=== PATIENT | female | born 1965 | race Caucasian/White ===

== ENCOUNTER 2017-09-18 09:48 | Day surgery (SDC) | payer BC ==
[~2017-09-18] VITALS: Ht 175.3 cm; Wt 93.4 kg
[~2017-09-18 09:48] MED LIST: AMIT25; CLON.5; CYCL10 PO; VENL75ER
[2017-09-18] MEDS ORDERED: ELIQUIS2.5 MG (10:42)
== END 2017-09-18 13:45 | disposition home or self-care (01) ==
LOC: ORSCSDS 09:48
PROVIDERS: Internal Medicine Gastroenterology
PROC: 3E0H8GC Introduction of Other Therapeutic Substance into Lower GI, Via Natural or Artificial Opening Endoscopic (ICD-10-PCS; principal; 2017-09-18 11:00)
PROC: 0DB68ZX Excision of Stomach, Via Natural or Artificial Opening Endoscopic, Diagnostic (ICD-10-PCS; principal; 2017-09-18 11:00)
PROC: 0DBH8ZX Excision of Cecum, Via Natural or Artificial Opening Endoscopic, Diagnostic (ICD-10-PCS; principal; 2017-09-18 11:00)
PROC: 0DBK8ZX Excision of Ascending Colon, Via Natural or Artificial Opening Endoscopic, Diagnostic (ICD-10-PCS; principal; 2017-09-18 11:00)
PROC: 0DBL8ZX Excision of Transverse Colon, Via Natural or Artificial Opening Endoscopic, Diagnostic (ICD-10-PCS; principal; 2017-09-18 11:00)
PROC: 0DB88ZX Excision of Small Intestine, Via Natural or Artificial Opening Endoscopic, Diagnostic (ICD-10-PCS; principal; 2017-09-18 11:00)
DX: R14.0 Abdominal distension (gaseous) (principal); R14.1 Gas pain; K25.9 Gastric ulcer, unspecified as acute or chronic, without hemorrhage or perforation; D12.0 Benign neoplasm of cecum; D12.2 Benign neoplasm of ascending colon; D12.3 Benign neoplasm of transverse colon; K57.30 Diverticulosis of large intestine without perforation or abscess without bleeding; K64.8 Other hemorrhoids; Z83.71 Family history of colonic polyps; R73.03 Prediabetes; M79.7 Fibromyalgia; Z79.899 Other long term (current) drug therapy
CPT/HCPCS: 88305; 88342; J7120

== ENCOUNTER → 2018-10-27 | Outpatient (CLI) | payer BC ==
[~2018-10-27] MED LIST changes: +ELIQUIS2.5 MG
== END | disposition home or self-care (01) ==
LOC: LAB 14:32 → LAB SHORT 14:32
PROVIDERS: Nurse Practitioner
DX: Z01.419 Encounter for gynecological examination (general) (routine) without abnormal findings (principal)
CPT/HCPCS: G0145

== ENCOUNTER 2018-11-10 15:52 | Emergency (ER) | payer BC ==
[~2018-11-10] VITALS: Ht 175.3 cm; Wt 86.2 kg
[2018-11-10 17:03] LABS: BASOPHILS ABSOLUTE AUTO 0.03 K/mm3 (0.00-0.23); BASOPHILS PERCENT AUTO 0 % (0-2); EOSINOPHILS ABSOLUTE AUTO 0.16 K/mm3 (0.00-0.68); EOSINOPHILS PERCENT AUTO 1 % (0-6); Hematocrit 47.9 % (33.0-51.0); Hemoglobin 15.5 g/dL (11.5-16.0); IMMATURE GRAN ABSOLUTE AUTO 0.04 K/mm3 (0.00-0.10); IMMATURE GRAN PERCENT AUTO 0 % (0-1); LYMPHOCYTES ABSOLUTE AUTO 0.51 K/mm3 (0.84-5.20); LYMPHOCYTES PERCENT AUTO 4 % (21-46); MONOCYTES PERCENT AUTO 4 % (4-13); Mean Corpuscular HGB Conc 32.4 g/dL (31.5-36.5); Mean Corpuscular Volume 93 fL (80-100); Mean Platelet Volume 9.1 fL (9.1-12.4); NEUTROPHILS ABSOLUTE AUTO 12.72 K/mm3 (1.96-9.15); NEUTROPHILS PERCENT AUTO 91 % (41-73); Platelet Count 271 K/mm3 (150-400); RDW Coefficient Variation 12.8 % (11.7-14.2); RDW Standard Deviation 43.9 fL (35.1-46.3); Red Blood Cell Count 5.17 M/mm3 (3.80-5.20); White Blood Cell Count 13.96 K/mm3 (4.00-11.30)
[2018-11-10 17:28] LABS: C-REACTIVE PROTEIN, EXT RANGE <0.290 mg/dL (0.000-0.300)
[2018-11-10 17:30] LABS: Alanine Aminotransfer (ALT/SGP 30 U/L (12-78); Albumin, Blood 4.4 g/dL (3.4-5.0); Alk Phos 67 U/L (50-136); Anion Gap 7 mmol/L (6-16); Aspartate Aminotrans (AST/SGOT 27 U/L (12-37); Bilirubin, Total 0.6 mg/dL (0.1-1.0); Blood Urea Nitrogen 20 mg/dL (8-24); Bun/Creatinine Ratio 34.2 (12.0-20.0); CO2, Blood 26 mmol/L (21-32); Calcium, Blood 9.2 mg/dL (8.5-10.1); Chloride, Blood 106 mmol/L (98-108); Creatinine, Blood 0.58 mg/dL (0.40-1.00); Globulin, Blood 4.2 g/dL (2.2-4.0); Glomerular Filtration Rate >60 (60-); Glucose, Blood 164 mg/dL (70-99); Potassium, Blood 4.3 mmol/L (3.5-5.5); Sodium, Blood 139 mmol/L (136-145); Total Protein, Blood 8.6 g/dL (6.4-8.2)
[2018-11-10 21:04] LABS: Source, Urine Clean Catch
[2018-11-10 21:07] LABS: Appearance, Urine Hazy (Clear); Bilirubin, Urine Neg (Neg); Blood, Urine 1+ (Neg); Color, Urine Yellow (P-Yellow); Glucose Qualitative, Urine Neg (Neg); Ketones, Urine Neg (Neg); Leukocyte Esterase, Urine 1+ (Neg); Nitrite, Urine Pos (Neg); Protein, Urine 2+ (Neg); Urobilinogen, Urine NORM (Normal)
[2018-11-10 21:22] LABS: Bacteria Many /hpf; Red Blood Cells, Urine Not Seen /hpf (0-2); Squamous Epithelial Cells Few /hpf (Few)
[2018-11-10] MEDS ORDERED: TRAZ50 PO (21:29)
[2018-11-11] MEDS ORDERED: Zofran8 MG PO (01:03)
[2018-11-11] MEDS ORDERED: Bactrim Ds Tab1 EACH PO (01:03)
[2018-11-11] MEDS ORDERED: HYDR1TAB94 PO (01:03)
== END 2018-11-11 01:28 | disposition home or self-care (01) ==
LOC: ER 15:52
PROVIDERS: Emergency Medicine; Physician Assistant
DX: N39.0 Urinary tract infection, site not specified (principal); K52.9 Noninfective gastroenteritis and colitis, unspecified; M41.9 Scoliosis, unspecified; R20.2 Paresthesia of skin; Z88.5 Allergy status to narcotic agent; Z98.890 Other specified postprocedural states
CPT/HCPCS: 51798; 74176; 80053; 81001; 83690; 85025; 85651; 86140; J0696; J7120

== ENCOUNTER 2020-09-08 16:32 | Inpatient (IN) | payer BC ==
[~2020-09-08] VITALS: Ht 175.3 cm; Wt 83.5 kg
[~2020-09-08 16:32] MED LIST changes: +Bactrim Ds Tab1 EACH PO; +HYDR1TAB94 PO; +TRAZ50 PO; +Zofran8 MG PO
[2020-09-08 16:55] LABS: Source, Urine Clean Catch
[2020-09-08 17:04] LABS: Appearance, Urine Hazy (Clear); Bilirubin, Urine Neg (Neg); Blood, Urine 1+ (Neg); Color, Urine Yellow (P-Yellow); Glucose Qualitative, Urine Neg (Neg); Ketones, Urine 2+ (Neg); Leukocyte Esterase, Urine 1+ (Neg); Nitrite, Urine Neg (Neg); Protein, Urine Neg (Neg); Specific Gravity, Urine 1.015 (1.003-1.022); Urobilinogen, Urine NORM (Normal)
[2020-09-08 17:14] LABS: BASOPHILS ABSOLUTE AUTO 0.04 K/mm3 (0.00-0.23); BASOPHILS PERCENT AUTO 0 % (0-2); EOSINOPHILS ABSOLUTE AUTO 0.07 K/mm3 (0.00-0.68); EOSINOPHILS PERCENT AUTO 0 % (0-6); Hematocrit 42.5 % (33.0-51.0); Hemoglobin 13.8 g/dL (11.5-16.0); IMMATURE GRAN ABSOLUTE AUTO 0.06 K/mm3 (0.00-0.10); IMMATURE GRAN PERCENT AUTO 0 % (0-1); LYMPHOCYTES ABSOLUTE AUTO 1.34 K/mm3 (0.84-5.20); LYMPHOCYTES PERCENT AUTO 8 % (21-46); MONOCYTES ABSOLUTE AUTO 1.15 K/mm3 (0.16-1.47); MONOCYTES PERCENT AUTO 7 % (4-13); Mean Corpuscular HGB 29.2 pg (26.0-34.0); Mean Corpuscular HGB Conc 32.5 g/dL (31.5-36.5); Mean Corpuscular Volume 90 fL (80-100); Mean Platelet Volume 9.2 fL (9.1-12.4); NEUTROPHILS ABSOLUTE AUTO 13.94 K/mm3 (1.96-9.15); NEUTROPHILS PERCENT AUTO 84 % (41-73); Platelet Count 232 K/mm3 (150-400); RDW Coefficient Variation 13.6 % (11.7-14.2); RDW Standard Deviation 44.4 fL (35.1-46.3); Red Blood Cell Count 4.72 M/mm3 (3.80-5.20)
[2020-09-08 17:20] LABS: Bacteria Mod /hpf; Squamous Epithelial Cells Few /hpf (Few)
[2020-09-08 17:36] LABS: Alanine Aminotransfer (ALT/SGP 19 U/L (12-78); Albumin, Blood 3.6 g/dL (3.4-5.0); Albumin/Globulin Ratio 0.9 (0.8-1.8); Alk Phos 57 U/L (50-136); Anion Gap 9 mmol/L (6-16); Aspartate Aminotrans (AST/SGOT 27 U/L (12-37); Bilirubin, Total 0.6 mg/dL (0.1-1.0); Blood Urea Nitrogen 14 mg/dL (8-24); Bun/Creatinine Ratio 22.2 (12.0-20.0); CO2, Blood 22 mmol/L (21-32); Calcium, Blood 8.9 mg/dL (8.5-10.1); Chloride, Blood 104 mmol/L (98-108); Creatinine, Blood 0.63 mg/dL (0.40-1.00); Globulin, Blood 3.9 g/dL (2.2-4.0); Glomerular Filtration Rate >60 (60-); Glucose, Blood 131 mg/dL (70-99); Potassium, Blood 4.3 mmol/L (3.5-5.5); Sodium, Blood 135 mmol/L (136-145); Total Protein, Blood 7.5 g/dL (6.4-8.2)
[2020-09-08 20:22] LABS: International Normalized Ratio 0.98; Prothrombin Time Results 10.5 Sec (9.7-11.5)
[2020-09-08 23:37] LABS: Influenza A, PCR Negative (NEGATIVE); Influenza B, PCR Negative (NEGATIVE); Resp Syncytial Virus, PCR Negative (NEGATIVE); SARS-Cov-2 (COVID-19) PCR, MMC Negative (NEGATIVE)
[2020-09-09 03:31] LABS: Hematocrit 39.1 % (33.0-51.0); Hemoglobin 12.5 g/dL (11.5-16.0); Mean Corpuscular HGB 28.9 pg (26.0-34.0); Mean Corpuscular Volume 90 fL (80-100); Mean Platelet Volume 8.9 fL (9.1-12.4); Platelet Count 206 K/mm3 (150-400); RDW Coefficient Variation 13.7 % (11.7-14.2); RDW Standard Deviation 45.9 fL (35.1-46.3); Red Blood Cell Count 4.33 M/mm3 (3.80-5.20); White Blood Cell Count 16.14 K/mm3 (4.00-11.30)
[2020-09-09 03:49] LABS: Anion Gap 5 mmol/L (6-16); Blood Urea Nitrogen 14 mg/dL (8-24); Bun/Creatinine Ratio 23.6 (12.0-20.0); CO2, Blood 26 mmol/L (21-32); Calcium, Blood 8.4 mg/dL (8.5-10.1); Chloride, Blood 110 mmol/L (98-108); Creatinine, Blood 0.59 mg/dL (0.40-1.00); Glomerular Filtration Rate >60 (60-); Glucose, Blood 111 mg/dL (70-99); Magnesium, Blood 2.2 mg/dL (1.6-2.4); Potassium, Blood 3.9 mmol/L (3.5-5.5); Sodium, Blood 141 mmol/L (136-145)
--- NOTE | 2020-09-09 05:09 | NUR ---
SHIFT SUMMARY PT ARRIVED TO UNIT VIA @ 2100 ON 09/07/2020, APPEARED TO BE IN NO ACUTE DISTRESS, TRANSFERRED FROM TO THE BATHROOM INDEPENDENTLY, ACCOMPANIED BY SO. ONCE FINISHED, SHE WAS ASSISTED TO BED, VITALS OBTAINED, ORIENTED TO ROOM, INITIAL ASSESSMENT AND ADMIT INFORMATION WAS COMPLETED, PT HX GATHERED W/ THE HELP OF HER SO. PT NPO OTHER THAN 1 PARTIAL CUP OF WATER USED FOR ORAL MEDS, PAIN WELL CONTROLLED, INITIAL CONSENTS FOR SURGERY COMPLETED, SURGICAL PACKET PUT TOGETHER. CALL LIGHT IN REACH, WILL CONTINUE TO MONITOR AND REPORT TO ONCOMING DAY RN.
--- NOTE | 2020-09-09 09:10 | NUR ---
PT TO OR AT ABOUT 0820
--- NOTE | 2020-09-09 14:03 | NUR ---
POST OP: REPORT RECIEVED FROM KELLY, BOLTING MACHINE OPERATOR. PT TO UNIT AT ABOUT 1020. UPON ASSESSMENT, PT IS IN NO VISABLE DISTRESS, A/O, VSS. DENIES PAIN AND N/V. ABLE TO TOLERATE PO INTAKE. WILL CTM
--- NOTE | 2020-09-09 17:26 | NUR ---
SUMMARY: PT HAS DONE WELL POST OP. VSS, A/O. VOIDING, DELMER REG DIET. NO N/V, MINIMAL PAIN. ABLE TO AMBULATE IN HALLS WITH . SURGICAL SITES WNL. PLAN IS TO DC TOMORROW PER DR. TOTH. WILL CTM AND REPORT TO JERRELL RETANA.
--- NOTE | 2020-09-10 06:32 | NUR ---
POD 1 S/P LAP APPY. PT VSS T/O NIGHT. INCISIONS CDI. PAIN MGD W/TORADOL AND 1 OXYCODONE THIS AM. PT DELMER REG PO, NO N/V, REP +FLATUS, IS VOIDING URINE W/O DIFFICULTY. PT AMB INDEP IN HALLS, DELMER WELL. IVF AND ABX CONT PER ORDERS.
[2020-09-10] MEDS ORDERED: Cymbalta20 MG PO (12:01)
[2020-09-10] MEDS ORDERED: GABA100 PO (12:01)
[2020-09-10] MEDS ORDERED: METF500 PO (12:01)
[2020-09-10] MEDS ORDERED: TRAZ50 PO (12:02)
[2020-09-10] MEDS ORDERED: ALPR.25 PO (12:03)
[2020-09-10] MEDS ORDERED: CYCL10 PO (12:03)
[2020-09-10] MEDS ORDERED: ELIQUIS2.5 MG PO (12:04)
[2020-09-10] MEDS ORDERED: VENL37.5ER PO (12:04)
[2020-09-10] MEDS ORDERED: Percocet 5-3251 EACH PO (12:14)
[2020-09-10] MEDS ORDERED: AMOCLA875 PO (12:15)
--- NOTE | 2020-09-10 12:29 | NUR ---
DISCHARGE NOTE: PATIENT WAS EDUCATED ON DISCHARGE INFORMATION. SHE VERBALIZED UNDERSTANDING OF INSTRUCTIONS. SHE IS ALERT AND ORIENTED X4. VITALS ARE WNL AND ON RA. PAIN IS MANAGED WITH PERCOCET. SHE HAS HARD PERSCRIPTIONS FOR BOTH PERCOCET AND AUGMENTIN. IV WAS TAKEN OUT AND WAS WNL. SHE HAS HER BELONGINGS IN HER BAG AND IS DRESSED. SHE IS CURRENTLY BEING WHEELCHAIRED OUT TO HER SIGNIFICANT OTHERS CAR. SHE WAS A PLEASANT PATIENT TO HAVE TAKEN CARE OF.
== END 2020-09-10 12:35 | disposition home or self-care (01) | DRG 853 ==
LOC: ER 16:32 → SURS 20:50
PROVIDERS: Student in an Organized Health Care Education/Training Program; ADMIT Surgery
PROC: 0DTJ4ZZ Resection of Appendix, Percutaneous Endoscopic Approach (ICD-10-PCS; principal; 2020-09-09 07:00)
DX: A41.9 Sepsis, unspecified organism (principal); K35.32 Acute appendicitis with perforation, localized peritonitis, and gangrene, without abscess; K42.9 Umbilical hernia without obstruction or gangrene; Z20.828 Contact with and (suspected) exposure to other viral communicable diseases; F32.9 Major depressive disorder, single episode, unspecified; F41.9 Anxiety disorder, unspecified; Z86.718 Personal history of other venous thrombosis and embolism
CPT/HCPCS: 0241U; 36415; 74177; 80048; 80053; 81001; 83605; 83690; 83735; 85025; 85027; 85610; 87086; 96361; 96365-59; 96375; 99285-25; J0295; J1100; J1170; J1885; J2250; J2370; J2405; J2704; J2710; J3010; J7030; J7120; Q9967

== ENCOUNTER 2020-11-28 12:29 | Day surgery (SDC) | payer BC ==
[~2020-11-28] VITALS: Ht 170.2 cm; Wt 83.1 kg
[~2020-11-28 12:29] MED LIST changes: +ALPR.25 PO; +AMOCLA875 PO; +Cymbalta20 MG PO; +ELIQUIS2.5 MG PO; +GABA100 PO; +METF500 PO; +Percocet 5-3251 EACH PO; +VENL37.5ER PO
[2020-11-28] MEDS ORDERED: ASPI81CH PO (13:38)
[2020-11-28] MEDS ORDERED: ASPI325 PO (13:42)
== END 2020-11-28 15:12 | disposition home or self-care (01) ==
LOC: ORSCSDS 12:29
PROVIDERS: Surgery
PROC: 0DJD8ZZ Inspection of Lower Intestinal Tract, Via Natural or Artificial Opening Endoscopic (ICD-10-PCS; principal; 2020-11-28 14:00)
DX: Z12.11 Encounter for screening for malignant neoplasm of colon (principal); Z86.010 Personal history of colon polyps; F41.8 Other specified anxiety disorders; F41.9 Anxiety disorder, unspecified; Z79.82 Long term (current) use of aspirin; Z79.899 Other long term (current) drug therapy
CPT/HCPCS: J2704; J7120

== ENCOUNTER 2025-05-09 22:18 | Emergency (ER) | payer OTHER ==
[~2025-05-09] VITALS: Ht 170.2 cm; Wt 95.2 kg
[~2025-05-09 22:18] MED LIST changes: +ASPI325 PO; +ASPI81CH PO
[2025-05-09 22:49] VITALS: BP 146/98
== END 2025-05-09 23:00 | disposition home or self-care (01) ==
LOC: ER 22:18
DX: T23.252A Burn of second degree of left palm, initial encounter (principal); T23.232A Burn of second degree of multiple left fingers (nail), not including thumb, initial encounter; T31.0 Burns involving less than 10% of body surface; X15.3XXA Contact with hot saucepan or skillet, initial encounter; Z88.5 Allergy status to narcotic agent; Z79.82 Long term (current) use of aspirin; Z79.899 Other long term (current) drug therapy
CPT/HCPCS: 99283

== ENCOUNTER 2025-09-05 08:53 | Day surgery (SDC) | payer OTHER ==
[~2025-09-05] VITALS: Ht 170.2 cm; Wt 92.4 kg
[2025-09-05] MEDS ORDERED: CeFAZolin Sodium 2,000 MG VIAL ONE (09:06)
[2025-09-05] MEDS ORDERED: NS 500 ML IV ONE ×2 (09:06→09:32)
[2025-09-05] MEDS ORDERED: IBUP200 PO (09:11)
[2025-09-05] MEDS ORDERED: DULOXETINE HCL60 M1 PO (09:12)
[2025-09-05] MEDS ORDERED: NEURONTIN300 MG PO (09:13)
[2025-09-05] MEDS ORDERED: BUPROPION XL150 M1 PO (09:13)
[2025-09-05] MEDS ORDERED: WEGOVY0.25 MG/0. SQ (09:15)
--- NOTE | 2025-09-05 09:34 | NUR ---
09/05/25 0934 Maricruz Merida TIME OUT PERFORMED AT BEDSIDE AT [address] BONNER IMMEDIATELY PRIOR TO INJECTION OF 5ML OF 10ML SOLUTION CONSISTING OF 9ML 1% LIDOCAINE W/EPI [id number] AND 1 ML 8.4% SODIUM BICARBONATE INTO R HAND. PT TOLERATED PROCEDURE WELL.
[2025-09-05 10:54] VITALS: BP 139/90
== END 2025-09-05 10:45 | disposition home or self-care (01) ==
LOC: ORSCSDS 08:53
PROVIDERS: Orthopaedic Surgery
PROC: 0LN70ZZ Release Right Hand Tendon, Open Approach (ICD-10-PCS; principal; 2025-09-05 10:30)
DX: M65.341 Trigger finger, right ring finger (principal); F41.9 Anxiety disorder, unspecified; F32.A Depression, unspecified; R73.03 Prediabetes; Z86.718 Personal history of other venous thrombosis and embolism; M79.7 Fibromyalgia; E66.9 Obesity, unspecified; Z68.31 Body mass index [BMI] 31.0-31.9, adult; Z79.82 Long term (current) use of aspirin; Z79.85 Long-term (current) use of injectable non-insulin antidiabetic drugs; Z79.899 Other long term (current) drug therapy
CPT/HCPCS: 82947; J0690; J7040